=== PATIENT | female | born 1985 | race Caucasian/White ===

== ENCOUNTER → 2019-12-30 | Outpatient (CLI) | payer OTHER ==
[~2019-12-30] MED LIST: ANTIVERT25 MG PO; AUGMENTIN 875875 MG PO
== END ==
LOC: M.RAD 14:32
PROVIDERS: ATTEND Internal Medicine
DX: R07.9 Chest pain, unspecified (principal)

== ENCOUNTER → 2020-04-11 | Outpatient (CLI) | payer OTHER ==
--- NOTE | 2020-04-11 16:30 | EXE ---
[place] [address] STRESS ECHOCARDIOGRAM Name: TASHA VARGAS Room: [facility]#: [id number] Admission: 04/11/20 Attend Phys: Raman Main MD Discharge: Date of : 81 Date of Service: 04/11/20 1630 Report #: [id number] THIS REPORT FOR: cc: Raman Main MD, Meng MD Blick, David R. MD [facility] ~ APPROVED REPORT Study performed: 04/11/2020 15:16:14 Exam: Stress Echocardiogram Indication: Chest pain Patient Location: Out-Patient Stress Nurse: Dilcia Ramirez RN Supervising Physician: Zachary Jones MD Ht: 5 ft 6 in HR: 49 bpm BP: 136/71 mmHg Medical History Cardiac Risk Factors: FHX of CAD Procedure The patient underwent an Exercise Stress Test using the Cullen Protocol. Blood pressure, heart rate, and EKG were monitored. An Echocardiogram was performed by fuel technician in four stages in quad fashion. At peak stress, four selected images were obtained and placed side by side with resting images for comparison. Stress Test Details Stress Test: Exercise stress testing was performed using a Cullen protocol. HR Resting HR: 49 bpm Max Heart Rate (APMHR): 183 bpm Max HR Achieved: 181 bpm Target HR (85% APMHR): 155 bpm % of APMHR: 98 Recovery HR: 82 bpm HR response to stress: Normal HR response to stress BP Resting BP: 136/71 mmHg Max BP: 166/74 mmHg Recovery BP: 115/65 mmHg BP response to stress: Normal blood pressure response to [address] [address] STRESS ECHOCARDIOGRAM Name: TASHA VARGAS Room: [facility]#: [id number] Admission: 04/11/20 Attend Phys: Raman Main MD Discharge: Date of : 81 Date of Service: 04/11/20 1630 Report #: [id number] stress. ECG Resting ECG: Sinus Rhythm Stress ECG: Sinus Rhythm, nonspecific ST-T abnormalities ST Change: Upsloping ST depression Maximum ST Deviation: 1 mm Arrhythmia: VPC's Recovery ECG: Sinus Rhythm Recovery ST Change: None Recovery ST Deviation: 0 mm Recovery Arrhythmia: None Clinical Reason for Termination: Completed protocol, Maximal effort Exercise duration: 9 min 59 sec Highest Stage Achieved: Stage 4: 4.2 mph at 16% grade. Exercise capacity: 11.77 METs Pre-Stress Echo The resting Echocardiogram showed normal left ventricular contractility with an estimated Ejection Fraction of about 55-60%. Post-Stress Echo The stress Echocardiogram showed normal left ventricular contractility with an estimated Ejection Fraction of about 65-70%. Compared to rest, there were no stress-induced wall motion abnormalities. Conclusion Clinical Response: Non-ischemic Exercise Capacity: Average Stress ECG Response: Equivocal Stress Echo Images: Non-ischemic low risk stress echo for predicting future cardiac events Other Information Study Quality: Good <Conclusion> low risk stress echo for predicting future cardiac events <ELECTRONICALLY SIGNED> By: Zachary Jones MD, [facility] 04/11/20 163 29 29 Zachary Jones MD, FACC /INF
== END ==
LOC: M.CRD 01-11 15:00
PROVIDERS: ATTEND Internal Medicine
DX: R07.9 Chest pain, unspecified (principal); E78.5 Hyperlipidemia, unspecified; E66.01 Morbid (severe) obesity due to excess calories